=== PATIENT | male | born 1945 ===

== ENCOUNTER 2017-08-02 13:43 | Outpatient (CLI) | payer MEDICARE, OTHER ==
--- NOTE | 2017-08-02 15:40 | Diagnostic Imaging Report ---
TORI LOPEZ [facility] [address] [facility]ly [facility] [address] [address] Report Submission Date: Aug 02, 2017 2:35:53 PM CDT Patient Study Name: GENNA DICKEY DEREJE Date: Aug 02, 2017 1:59:11 PM CDT Modality Type: US Gender: M Description: UNILAT LTD STDY EXT VEINS : 41 Institution: [facility] Physician: TORI LOPEZ Examination: Ultrasound vein History: Leg discomfort Findings: Sonographic evaluation of the right lower extremity venous system from the groin to the popliteal fossa inclusive. Normal compressibility. No luminal filling defect. Normal waveforms and response to augmentation. Fluid collection within the popliteal region measuring 5.2 cm in maximal length. Mild edema within the calf soft tissue. Impression: No evidence for deep venous thrombosis. Guillaume cyst. Calf region soft tissue edema. Electronically signed on Aug 02, 2017 2:35:53 PM CDT by: Marino DIANE
== END 2017-08-02 13:44 ==
LOC: RAD 13:43
PROVIDERS: ATTEND Family Medicine
DX: M79.89 Other specified soft tissue disorders (principal)
CPT/HCPCS: 93971

== ENCOUNTER 2017-10-14 13:39 | Outpatient (CLI) | payer OTHER ==
--- NOTE | 2017-10-17 13:46 | CONSULTATION REPORT ---
REFERRING PHYSICIAN: Dr. Vane Trinh CONSULTING PHYSICIAN: Javon Valero MD Dear Dr. Trinh: REASON FOR CONSULT: Thank you for sending Mr. Chandler my way. HISTORY OF PRESENT ILLNESS: This is a 72-year-old white male who complains of "joint stiffness." This has been going on for 10 years and it is mainly in the lower legs. It involves the hips and the knees. He is finding it more and more difficult to work and walk. He has some stiffness in his hips and knees when getting up in the morning. It takes him about 5 to 10 minutes to get going. He also has some stiffness in his hips and his knees after driving for any prolonged period of time. He has not noted any significant swelling or crepitance. He does feel slightly unstable. He has difficulty walking more than a quarter to half a mile. His legs give out. He is also experiencing intermittent muscle cramps mainly after prolonged standing or working. Otherwise, he denies any involvement of his hands, wrists, elbows, shoulders, and feet. His back has been feeling weak but no tenderness. PAST MEDICAL HISTORY: 1. Diabetes. 2. Hyperlipidemia. 3. BPH. 4. Hypertension. 5. Chronic edema of right lower extremity with recent negative ultrasound. PRESENT MEDICATIONS: 1. Alfuzosin 10 mg. 2. Amlodipine 10 mg daily. 3. Aspirin 81 mg daily. 4. Fenofibrate 160 mg daily. 5. Finasteride 5 mg daily. 6. Fosinopril 40 mg twice a day. 7. Glimepiride 4 mg daily. 8. Insulin. 9. Metformin. ALLERGIES: He has no known drug allergies. REVIEW OF SYSTEMS: He has a little fatigue and some high blood pressure. He has had swelling of the legs for years. He has some heartburn. He has some difficulty sleeping and he attributes it to sleep apnea. He also has known difficulty with an enlarged prostate. He was told to take Cialis years ago but has not because of the cost. Otherwise, no fevers. No dry, red, painful eyes. No dry mouth. No difficulty swallowing. No nausea, vomiting, or diarrhea. No dark stools or bloody stools. No history of inflammatory bowel disease. No skin rashes. No history of psoriasis. No color changes in the hands or feet in the cold. PHYSICAL EXAMINATION: GENERAL: On exam, he looks well. VITAL SIGNS: Weight: 242. Height: 5 feet 10 inches. BP: 135/60, T: 98, R : 18, heart rate 63. HEENT: Normal male pattern baldness. EOMs are intact. No stomatitis or glossitis. LUNGS: Clear with no crackles or wheezing. HEART: Regular rhythm. ABDOMEN: Soft and nontender. EXTREMITIES: He has trace edema of both lower extremities. He has superficial varicosities bilaterally. SKIN AND NAILS: No rashes or nail pitting. JOINTS: Hands, DIPs, PIPs, MCPs, and wrists are unremarkable. Elbows and shoulders are unremarkable. Ankles and feet with some hammer toe deformities, but no synovitis. No MTP tenderness. No ankle tenderness. The exam, however, is remarkable for marked decrease in flexion and extension of the neck. He has a little thoracic kyphosis. He has straightening of normal lumbar lordosis with marked loss of flexion and extension, as well as lateral flexion and restricted rotation. He otherwise has no spinal tenderness to percussion or paraspinal tenderness to palpation. Examination of the hips revealed severe restriction in flexion, as well as internal and external rotation, but no significant pain. He has hard bony swelling at the knees with again loss of complete flexion. Extension, however, is intact and there is effusion and there is no instability. IMPRESSION: Generalized osteoarthritis. DISCUSSION: I am concerned for an entity called diffuse idiopathic skeletal hyperostosis. I am also concerned for neurogenic claudication in view of his symptomatology of cramping, leg fatigue, and his abnormal back exam. PLAN: I am going to x-ray both hips, both knees, his thoracic and lumbar spine, and will give him a call in 4 weeks after I review his studies. He may require an MRI of his lumbar spine. Thank you very much for the opportunity to take care of your patient. Best regards, cc: Dr. Vane DIANE
== END 2017-10-14 14:24 ==
LOC: RHEU 13:39
PROVIDERS: ATTEND Internal Medicine
DX: M25.50 Pain in unspecified joint (principal)
CPT/HCPCS: 99213; G0463

== ENCOUNTER 2017-10-19 10:12 | Outpatient (CLI) | payer OTHER ==
--- NOTE | 2017-10-19 11:13 | Diagnostic Imaging Report ---
PO YEUNG [facility] [address] Formerly [facility] [address] [place] [address]. [address] Report Submission Date: Oct 19, 2017 11:12:00 AM MANAGER OF PROCUREMENT Patient Study Name: GENNA DICKEY DEREJE Date: Oct 19, 2017 10:31:35 AM MANAGER OF PROCUREMENT Modality Type: CR Gender: M Description: PELVIS : 41 Institution: [facility] Physician: PO YEUNG Examination: Plain film hips History: Hip discomfort Comparison exams: None provided Findings: 2 views of the right and left hips demonstrates articular degenerative changes. Acetabular spurring. No evidence for fracture or dislocation. No soft tissue abnormality. Impression: Degenerative changes. No acute osseous abnormality. Electronically signed on Oct 19, 2017 11:12:00 AM MANAGER OF PROCUREMENT by: Marino DIANE
--- NOTE | 2017-10-19 11:14 | Diagnostic Imaging Report ---
PO YEUNG [facility] [address] [facility]ly [facility] [address] [address] Report Submission Date: Oct 19, 2017 11:13:07 AM ELECTRIC BLANKET WIRER Patient Study Name: GENNA DICKEY DEREJE Date: Oct 19, 2017 10:40:44 AM ELECTRIC BLANKET WIRER Modality Type: CR Gender: M Description: SPINE : 41 Institution: [facility] Physician: PO YEUNG Examination: Plain film lumbar spine History: Discomfort. Findings: 3 views of the lumbar spine demonstrate normal height. No anterior compression. Osteophyte formation. Facet degenerative changes. Atherosclerotic disease involving the abdominal aorta and iliac vessels. Impression: Degenerative changes. No compression deformity. Electronically signed on Oct 19, 2017 11:13:07 AM ELECTRIC BLANKET WIRER by: Marino DIANE
--- NOTE | 2017-10-19 11:14 | Diagnostic Imaging Report ---
PO YE[place]G [facility] [address] [facility] [address] [address] Report Submission Date: Oct 19, 2017 11:10:40 AM CLOTH WEAVER Patient Study Name: GENNA DICKEY DEREJE Date: Oct 19, 2017 10:36:03 AM CLOTH WEAVER Modality Type: CR Gender: M Description: LOWER EXTREMITY : 41 Institution: [facility] Physician: PO YEUNG Examination: Plain film knees History: Knee discomfort Findings: 3 views of the right and left knees demonstrates tibial spine, medial/ lateral, and patellar spurring. Medial joint space narrowing. No joint effusion. Vascular calcifications. Impression: Degenerative changes. No fracture. Electronically signed on Oct 19, 2017 11:10:40 AM CLOTH WEAVER by: Marino DIANE
--- NOTE | 2017-10-19 11:16 | Diagnostic Imaging Report ---
PO YE[place]G [facility] [address] [facility] [address] [address] Report Submission Date: Oct 19, 2017 11:15:50 AM POWER NUT RUNNER OPERATOR Patient Study Name: GENNA DICKEY DEREJE Date: Oct 19, 2017 10:29:03 AM POWER NUT RUNNER OPERATOR Modality Type: CR Gender: M Description: SPINE : 41 Institution: [facility] Physician: PO YEUNG Examination: Plain film thoracic spine History: Back discomfort. Findings: 3 views of the thoracic spine demonstrate normal height. No anterior compression. Mild kyphosis. Anterior and lateral osteophytes. No soft tissue abnormalities. Impression: Degenerative changes and mild kyphosis. No compression deformity. Electronically signed on Oct 19, 2017 11:15:50 AM POWER NUT RUNNER OPERATOR by: Marino DIANE
== END 2017-10-19 10:13 ==
LOC: LAB 10:12 → RAD 10:13
PROVIDERS: ATTEND Internal Medicine
DX: M19.90 Unspecified osteoarthritis, unspecified site (principal)
CPT/HCPCS: 72072; 72100; 73521

== ENCOUNTER 2018-03-21 08:24 | Outpatient (CLI) | payer OTHER ==
[2018-03-21 09:23] LABS: eGFR (Non-African) > 60
== END 2018-03-21 08:25 ==
LOC: LAB 08:24
PROVIDERS: ATTEND Internal Medicine Endocrinology, Diabetes & Metabolism
DX: E11.9 Type 2 diabetes mellitus without complications (principal)
CPT/HCPCS: 36415; 80053; 80061; 83036

== ENCOUNTER 2018-04-26 12:26 | Outpatient (CLI) | payer OTHER | END 2018-04-26 12:27 | LOC: LABRHC 12:26 | PROVIDERS: ATTEND Family Medicine | DX: R31.0 Gross hematuria (principal) | CPT/HCPCS: 87086 ==

== ENCOUNTER 2018-08-31 08:47 | Outpatient (CLI) | payer OTHER ==
[2018-08-31 10:36] LABS: eGFR (Non-African) > 60
== END 2018-08-31 08:50 ==
LOC: LAB 08:47
PROVIDERS: ATTEND Internal Medicine Endocrinology, Diabetes & Metabolism
DX: E11.9 Type 2 diabetes mellitus without complications (principal)
CPT/HCPCS: 36415; 80048; 80061; 82043; 83036

== ENCOUNTER 2019-07-12 15:24 | Outpatient (CLI) | payer OTHER ==
--- NOTE | 2019-07-18 11:09 | CONSULTATION REPORT ---
DATE OF CONSULTATION: 07/12/2019 SUBJECTIVE: Yang Chandler is a 73-year-old male presenting to clinic for a first time visit with me for a concerning right great toenail. The patient states that he had discoloration and looseness to the left great toenail at one point but eventually a new nail grew in behind it and slowly the old nail has grown out appropriately and safely. The patient states that his right great toe for at least 6 months to a year has had worsening discoloration including some purple and black discoloration in the base of the nail that is located only in the nail and that it is loose, catching in socks and causing pain for him. The patient is a diabetic patient and he also has prostate cancer and is on some sort of hormonal treatment for the prostate cancer that he states is like chemo/radiation but it does not affect his immune system. The patient admits to being on a baby aspirin daily as well. He does not admit to any fevers, chills, nausea, vomiting, shortness of breath or chest pain. He is interesting in establishing regular care for toenail trimming every 3 months and checking his diabetic feet as well. OBJECTIVE: Vitals: Temperature 97.7 degrees Fahrenheit, heart rate 60, respiration rate 16, blood pressure 130/67. O2 saturation is 93% on room air. Vascular: 2+ DP and PT pulses, right foot and 1+ DP and PT pulses of the left foot. Capillary refill time is less than 3 seconds to the toes bilaterally. There is no edema noted, bilaterally. Dermatologic: The right great toenail has some dark discoloration, more purple/black underneath the base of the proximal end of the right great toenail. There is also some yellow discoloration and thickening of the right great toenail throughout the remaining portion of the nail distally. There are no other gross abnormalities or concerning skin lesions noted bilaterally. There are no open wounds, erythema, ecchymosis, etc. Musculoskeletal: There is pain with motion of the right great toenail. It should be noted that the right great toenail is very loose and half to two-thirds of the nail is released laterally. The medial third to half of the nail is still attached to the base and is quite sore to try and move. There were no other gross abnormalities noted. Neurologic: Light touch sensation seems diminished to the toes compared to more proximal at the ankles bilaterally. ASSESSMENT AND PLAN: 1. Onycholysis of the right great toenail, painful. 2. Diabetes mellitus, type 2. Discussion was had with the patient regarding trimming the toenail back appropriately and allowing it to continue to grow and we will continue doing that as needed versus possibly removing the great toenail and allowing a new nail to grow in versus removing it permanently to get rid of any problems in the future. The patient is on hormonal therapy for the prostate cancer and not on immunosuppressive medication according to the patient. The decision was made to try and just trim back the nail but with efforts to do so today it was found that the nail was more loose than we thought and I feel it would be safer to in a clean fashion remove the toenail rather than it getting caught in socks and removing itself on its own and getting infected in a shoe and sock. With the patients diabetes I feel this would be a more appropriate thing to do. The patient admits his recent A1c was approximately 7.0% and that it has been about that for quite some time. The patient agrees to go forward with a total nail avulsion and allow a new nail to grow in and see how he does on the right great toe. Consent was obtained after the risks and benefits were discussed that include but are not limited to bleeding, infection, non-healing, and possibly a new nail not tacking down to the skin of the nail bed which may require a subsequent repeat total nail avulsion with an additional chemical matrixectomy to try and stop the nail from growing back at all. The patient understands the risks and benefits and has agreed both by written and verbal consent to go forward with the procedure at this time for a right great toenail total nail avulsion. PROCEDURE #1: Total nail avulsion, right great toenail (temporary). An alcohol swab was utilized to cleanse the base of the right great toe and an injection consisting of 4 mL of a 1:1 mix of 2% lidocaine plain and 0.5% Marcaine plain were injected into the base of the right great toe. At this time a Betadine prep was performed to clean the toe and anesthesia was obtained appropriately. A hemostat was then utilized to loosen the nail dorsally and plantarly and the nail was avulsed in its entirety. There was some thick underlying nail bed that was removed with the nail and off to the lateral side where the nail was not attached to have a nice clean raw base to heal. There was moderate bleeding which was controlled with pressure and silver nitrate. The site was then flushed with a copious amount of normal saline. At this time dressings were applied after drying it consisting of Silvadene, Adaptic, 4x4 gauze, 2-inch Bi and 1-inch Coban beginning on the toe and ending on the distal forefoot to help hold it on the toe. The patient was given verbal and written instructions for postprocedure care. He was very grateful for the procedure and care we gave him today, and the explanation. He has no further questions. He will continue to change the dressings daily with antibiotic ointment and a Band-Aid beginning tomorrow and to keep it clean as instructed. We will see the patient back for a return to clinic visit in 2 weeks for follow- up. He is to notify us of any concerns and to call Star if I am not around to find out if there is anything else that needs to be done if any concerns for infection arise. Otherwise, there is no concern for infection at this time and we will allow this to heal and a new nail to grow in slowly as described to the patient today. Yvan DelgadoPJustynaM. (Dictated/Not Signed) Mary R: 07/16/19 Job#: [id number] MTDD
== END 2019-07-12 15:55 ==
LOC: POD 15:24
PROVIDERS: ATTEND Podiatrist Foot & Ankle Surgery
DX: L60.1 Onycholysis (principal); E11.9 Type 2 diabetes mellitus without complications
CPT/HCPCS: 11730; 99213

== ENCOUNTER 2019-07-26 13:01 | Outpatient (CLI) | payer OTHER ==
--- NOTE | 2019-08-01 13:52 | OP Clinic Progress Note ---
DATE OF VISIT: 07/26/2019 SUBJECTIVE: Yang Chandler is a 73-year-old male presenting to clinic today for followup of a right great toenail total nail avulsion that was performed on 07/12/2019. The patient states that he has just very minimal pain if he presses on the toe at this time. Otherwise, he is feeling great. He states he only used the Band-Aid for a few days and then stopped putting anything on it as he felt like it was drying up well. He does not admit to any fevers, chills, nausea, vomiting, shortness of breath or chest pain. He admits to being diabetic and reminds me that he would like to have established regular three- month visits for toenail trimming and diabetic feet check. After next week, we will push him back about two and half months to begin doing so. OBJECTIVE: Vitals: Temperature 98.5 degrees Fahrenheit, heart rate 61, respiration rate 18, blood pressure 127/63. O2 saturation is 92% on room air. Vascular: Palpable DP and PT pulses, right foot. Capillary refill time is less than 3 seconds to the toes of the right foot. There is no edema noted, right foot. Dermatologic: The right great toenail bed is with a fairly stable eschar with minimal serous drainage expressed from the slightly loose area on the proximal medial edge of the nail bed. This was debrided slightly and there is no erythema or malodor or purulence or signs of infection at this time. Musculoskeletal: There is mild pain on palpation at the right great toenail bed area. There were no other gross abnormalities noted. Neurologic: Light touch sensation is intact to the toes, right foot. ASSESSMENT AND PLAN: 1. Postprocedure care (status post total nail avulsion of the right great toenail on 07/12/2019). A #15 blade was utilized to lightly debride off some of the overlying eschar to allow for the rest of the drainage to come out as needed. This was not an official procedure. The patient had this dressed with Triple Antibiotic Ointment and a Band-Aid. He was encouraged to use triple antibiotic ointment and a Band-Aid for about three or four more days and then just a plain Band-Aid for a few more days after that. At that time, it should be healed, but we will have him follow up in one week to make sure that he has healed at that time. At that time, we will see him about two and half months later for his regular 3 month diabetic feet check and toenail trimming and that appointment will be in the [facility]. We will see him in one week for followup of this here in outpatient clinic. Yvan DelgadoPJustynaM.(Dictated/not signed) /[employer] [id number] /mab MTDD
== END 2019-07-26 13:29 ==
LOC: POD 13:01
PROVIDERS: ATTEND Podiatrist Foot & Ankle Surgery
DX: Z48.817 Encounter for surgical aftercare following surgery on the skin and subcutaneous tissue (principal)
CPT/HCPCS: 11720; 99212; G0463; 99213; A4554

== ENCOUNTER 2019-08-02 08:27 | Outpatient (CLI) | payer OTHER ==
--- NOTE | 2019-08-03 14:38 | OP Clinic Progress Note ---
DATE OF VISIT: 08/02/2019 SUBJECTIVE: Yang Chandler is a 73-year-old male presenting to clinic today for followup of a right great toenail total nail avulsion that was performed on July 10, 2019. He denies any pain at this time and has been using a Band-Aid and states he is not having any drainage at this time. The patient does not admit to any fevers, chills, nausea, vomiting, shortness of breath or chest pain. OBJECTIVE: Vitals: Temperature 98.4 degrees Fahrenheit, heart rate 59, respiration rate 16, blood pressure 139/66. O2 saturation is 95% on room air. Vascular: Palpable DP and PT pulses, right foot. Capillary refill time is less than 3 seconds to the toes right foot. No edema noted on the right foot. Dermatologic: Right great toenail bed is with a stable dry eschar/hyperkeratotic tissue, which is removing on its own slowly. There is no raw tissue or drainage of any kind. This is dry and appears well healed. There is no warmth or erythema or signs of infection. Musculoskeletal: There is no pain on palpation at all on the right great toenail bed area. There are no other gross abnormalities noted. Neurologic: Light touch sensation is intact to the toes, right foot. ASSESSMENT AND PLAN: 1. Onychocryptosis. 2. Postprocedure care (right great toenail total nail avulsion performed on 07/12/2019) - healed. The patient has healed well and is happy with his care and would like to establish regular toenail trimming every three months. His last one was done on 07/12/2019. We will plan to have him back in mid September for a return to clinic visit then for regular toenail trimming. The patient has a very hard time doing it on his own. Yvan DelgadoP.M.(Dictated/not signed) /[employer] [id number] /mab MTDD
== END 2019-08-02 09:00 ==
LOC: POD 08:27
PROVIDERS: ATTEND Podiatrist Foot & Ankle Surgery
DX: Z48.817 Encounter for surgical aftercare following surgery on the skin and subcutaneous tissue (principal); L60.0 Ingrowing nail
CPT/HCPCS: 99213; G0463